=== PATIENT | male | born 1955 | race Caucasian/White ===

== ENCOUNTER 2018-11-17 11:32 | Day surgery (SDC) | payer MEDICARE ==
[~2018-11-17] VITALS: Ht 175.3 cm; Wt 65.7 kg
[~2018-11-17 11:32] MED LIST: ALLO100T PO; ATOR1TAB19 PO; LIDO2.5C15 TOP; NEUP480I3 SUBQ; PRED20TA PO; PROC10TA4 PO; TAMS1CAP17 PO; WARF-22 PO
[2018-11-17] MEDS ORDERED: VITACAP8 PO (12:46)
[2018-11-17] MEDS ORDERED: HM V5000 PO (12:46)
[2018-11-17] MEDS ORDERED: CLAR10CA3 PO (12:46)
[2018-11-17] MEDS ORDERED: MULTCAP PO (12:46)
[2018-11-17] MEDS ORDERED: PROPOFOL 200 MG/20 ML VIAL As Ordered ONE ×2 (13:05→17:08)
[2018-11-17] MEDS ORDERED: LIDOCAINE 2% INJ 100 MG/5 ML SDV (FOR ANES.) As Ordered ONE (13:05)
[2018-11-17] MEDS ORDERED: MIDAZOLAM INJ 2 MG/2 ML VIAL (J2250) As Ordered ONE (13:06)
[2018-11-17] MEDS ORDERED: ONDANSETRON 4MG/2ML VIAL (J2405) As Ordered ONE (13:06)
[2018-11-17] MEDS ORDERED: dexameTHASONE 4 MG/ML 1ML VIAL (J1100) As Ordered ONE (13:06)
[2018-11-17] MEDS ORDERED: fentaNYL 100 MCG/2 ML INJECTION (J3010) As Ordered ONE (13:06)
[2018-11-17] MEDS ORDERED: CONRAY-60 60% 50ML VIAL (Q9961) As Ordered ONE (15:38)
[2018-11-17] MEDS ORDERED: ceFAZolin 2 GM/D5W 50 ML IV BAG (J0690 PER 500MG) As Ordered ONE (15:43)
[2018-11-17] MEDS ORDERED: LIDOCAINE 2% 5ML JELLY UROJET As Ordered ONE (15:52)
[2018-11-17] MEDS ORDERED: ACETAMINOPHEN TAB 650MG DOSE (2X325MG) PO PRN (17:45)
[2018-11-17 18:30] VITALS: BP 116/62
--- NOTE | 2018-11-17 19:32 | REP ---
Retrograde pyelogram: Five views. History: Retrograde pyelogram. Findings: 57 seconds of fluoroscopy time is reported. A sequence of five last image hold fluoroscopically obtained spot radiographs of the abdomen document bilateral ureteral cannulation contrast injection and stent position. No laterality markers are visible. Electronically Signed by Collin Bennett MD 11/17/2018 07:33 P
--- NOTE | 2018-11-19 13:11 | RO ---
DATE OF PROCEDURE: 11/17/2018 PREPROCEDURE DIAGNOSIS: Bilateral hydronephrosis. POSTPROCEDURE DIAGNOSIS: Bilateral hydronephrosis. PROCEDURE: Cystoscopy, bilateral retrograde pyelogram with intraoperative interpretation of images, bilateral ureteral stent exchange. SURGEON: Dr. Spenser Rodriguez RECORDS ANALYSIS MANAGER: None. ANESTHESIA: MAC. 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 He was brought to the operating room today for routine bilateral ureteral stent exchange. DESCRIPTION OF PROCEDURE: The patient was brought to the operating room and MAC anesthesia was administered. Prophylactic antibiotics were infused. He was then placed in the dorsal lithotomy position and prepped and draped in the usual sterile fashion. A rigid cystoscope was then inserted into the urethral meatus and advanced into the bladder. Once inside the bladder, the previously placed stents were seen. The left ureteral stent was then withdrawn until the distal end was protruding through the urethral meatus. I then advanced a wire up the left ureteral stent and removed the stent intact. Once that was done, I advanced an open ended ureteral catheter up the left collecting system. The wire was then removed and I then shot a retrograde pyelogram. The retrograde pyelogram was notable for moderate left hydronephrosis with no extravasation. I then advanced the wire back up the left collecting system. Once the wire was advanced up the left collecting system, I then advanced a 7-Thai x 22-32 cm JJ ureteral stent up into the left collecting system. The wire was then removed and there were adequate curls of the stent in the left renal pelvis and in the bladder. I then grasped the right ureteral stent and withdrew it until the distal end was seen protruding from the urethral meatus. I then advanced the wire up the right stent and into the right collecting system. The stent was then removed leaving the wire in place. I then advanced an open ended ureteral catheter over the wire and up the right collecting system. I removed the wire and then shot a retrograde pyelogram notable for moderate right hydronephrosis with no extravasation. I then advanced the wire back up the right collecting system and then removed the open ureteral catheter. I then utilized the wire to advance a 7-Thai x 22-32 cm JJ ureteral stent up the right collecting system. The wire was removed and there were adequate curls of the stent in the right renal pelvis and in the bladder. The bladder was then emptied of all fluids and this marked conclusion of the procedure. The patient was then taken out of the dorsal lithotomy position, awakened from anesthesia, and transported to the recovery room in stable condition. ESTIMATED BLOOD LOSS: 5 mL. COMPLICATIONS: None. SPECIMENS: None. PLAN: I will likely get a CAT scan in 3 months if not already by obtained by oncology to check for a decrease in the size of the obstructing retroperitoneal mass. If it continues to decrease in response to chemotherapy, we will likely remove his stents. AILEEN
== END 2018-11-17 18:44 | disposition home or self-care (01) ==
LOC: M SDC 11:32
PROVIDERS: ATTEND Urology
DX: N13.39 Other hydronephrosis (principal); C85.10 Unspecified B-cell lymphoma, unspecified site; N18.3 Chronic kidney disease, stage 3 (moderate); I12.9 Hypertensive chronic kidney disease with stage 1 through stage 4 chronic kidney disease, or unspecified chronic kidney disease; E78.49 Other hyperlipidemia; Z86.73 Personal history of transient ischemic attack (TIA), and cerebral infarction without residual deficits; Z79.52 Long term (current) use of systemic steroids; Z79.899 Other long term (current) drug therapy; Z79.01 Long term (current) use of anticoagulants
CPT/HCPCS: 52332; 74420; C1769; C2617; J0690; J1100; J2250; J2405; J3010; Q9961